=== PATIENT | female | born 1990 | race African-American/Black ===

== ENCOUNTER 2021-06-13 06:27 | Emergency (ER) | payer OTHER, MEDICAID ==
[~2021-06-13] VITALS: Ht 167.6 cm; Wt 90.7 kg
[2021-06-13 08:34] VITALS: BP 122/80
== END 2021-06-13 09:48 | disposition home or self-care (01) ==
LOC: ER 06:27
DX: H66.91 Otitis media, unspecified, right ear (principal); Z20.822 Contact with and (suspected) exposure to COVID-19
CPT/HCPCS: 36415; 87426

== ENCOUNTER 2021-10-30 23:16 | Emergency (ER) | payer OTHER, MEDICAID ==
[~2021-10-30] VITALS: Ht 167.6 cm; Wt 99.8 kg
[2021-10-30 23:24] VITALS: BP 135/85
== END 2021-10-31 02:22 | disposition left against medical advice (07) ==
LOC: ER 23:16
DX: R10.12 Left upper quadrant pain (principal); R11.2 Nausea with vomiting, unspecified; R51.9 Headache, unspecified; Z53.21 Procedure and treatment not carried out due to patient leaving prior to being seen by health care provider

== ENCOUNTER 2022-06-22 16:59 | Emergency (ER) | payer MEDICAID, OTHER ==
[~2022-06-22] VITALS: Ht 167.6 cm; Wt 106.6 kg
[2022-06-22 17:37] LABS: Basophils # (auto) 0.1 10 ^3/uL (0-0.2); Basophils % (auto) 1.6 % (0.0-2.0); Eosinophils # (auto) 0.2 10 ^3/uL (0-0.8); Eosinophils % (auto) 1.7 % (0.0-7.0); Hematocrit 40.1 % (36.0-46.0); Hemoglobin 13.5 g/dL (12.2-16.2); Lymphocytes # (auto) 2.7 10 ^3/uL (0.4-5.4); Lymphocytes % (auto) 28.6 % (10.0-50.0); Mean Corpuscular Hemoglobin 29.9 pg (28.0-32.0); Mean Corpuscular Hgb Conc. 33.7 g/dL (32.0-36.0); Mean Corpuscular Volume 88.8 fL (80.0-100.0); Monocytes # (auto) 0.5 10 ^3/uL (0-1.3); Monocytes % (auto) 5.9 % (0.0-12.0); Neutrophils # (auto) 5.8 10 ^3/uL (1.6-8.6); Neutrophils % (auto) 62.2 % (37.0-80.0); Nucleated Red Blood Cells % 0.1 %; Red Blood Cells 4.52 10^6/uL (4.0-5.20); Red Cell Distribution Width 13.1 % (11.8-14.3); White Blood Cell 9.4 10^3/uL (4.4-10.8)
[2022-06-22 20:23] LABS: Urine Bacteria NONE SEEN /hpf (None Seen); Urine Blood Negative /uL (Negative); Urine Mucus FEW (None Seen); Urine Specific Gravity 1.036 (1.001-1.035); Urine WBC 1 /hpf (0 - 5)
[2022-06-22 21:42] VITALS: BP 157/96
== END 2022-06-22 22:06 | disposition home or self-care (01) ==
LOC: ER 16:59
DX: O20.0 Threatened abortion (principal); J45.909 Unspecified asthma, uncomplicated; Z3A.01 Less than 8 weeks gestation of pregnancy
CPT/HCPCS: 36415; 76801; 81001; 84702; 85025